=== PATIENT | female | born 1985 | race Caucasian/White ===

== ENCOUNTER 2020-12-03 04:37 | Inpatient (IN) | payer BC, OTHER ==
[~2020-12-03] VITALS: Ht 157.5 cm; Wt 88.9 kg
--- NOTE | 2020-12-03 11:53 | PR ---
[facility] [address] [facility] [place] [address] Signed PP Progress Notes Datetime Report Generated by CPN: 12/03/2020 11:53 SUBJECTIVE: [id number] Pain: Within Normal Limits Nausea/Vomiting: Denies Flatus: No Vital Signs: [id number] Vital Signs: Reviewed Notable Details: BPs resolved w/ procardia 10mg PO x 1 Cardiovascular: Normal Respiratory: Normal Abdomen/Uterus: Normal Lochia: Normal Extremities: Normal Progress: Not Applicable Exam Comments: Fundus firm U-2 nontender IMPRESSION/PLAN/PROCEDURES: [id number] Progress Notes: Reviewed preE labs and BPs. Will start Procadia XL 30mg daily and continue to monitor BPs and glucose. Current glucose 71 Signing Physician: Sanjuanita Gutierres DO Copies: ~ *Electronically Signed* 12/03/20 1153 SANJUANITA GUTIERRES DO PATIENT NAME: ROCHELLE WILDER PROGRESS NOTE DATE OF : 83 PHYSICIAN: SANJUANITA GUTIERRES DO RPT #: [id number] REPORT IS CONFIDENTIAL AND NOT TO BE RELEASED WITHOUT AUTHORIZATION
--- NOTE | 2020-12-03 16:50 | PR ---
[facility] [address] [facility] [place], [place] [address] Signed PP Progress Notes Datetime Report Generated by OMKAR: 12/03/2020 16:50 SUBJECTIVE: [id number] Pain: Within Normal Limits Nausea/Vomiting: Denies Flatus: Yes Bowel Movement: No Vital Signs: [id number] Vital Signs: Reviewed Notable Details: New onset severe Cardiovascular: Normal Respiratory: Normal Abdomen/Uterus: Normal Lochia: Normal Extremities: Abnormal Progress: Not Applicable Exam Comments: Fundus firm U-2 nontender. Reflexes brisk UE / LE bilaterally. No RUQ tenderness to deep palpation. IMPRESSION/PLAN/PROCEDURES: [id number] Other Impression: Preeclampsia w/ severe features Progress Notes: Called to pt's bedside for persistent severe range BPs. Pt given labetalol per protocol. Pt denies TATUM, RUQ pain, or visual changes. Reviewed earlier labs that showed significant proteinuria (Pro/Creat Ratio 1.7) but remainder of labs normal. Dx PreE with severe features. Will treat severe BPs w/ labetalol per protocol. Mag sulfate 6g bolus over 20 minutes w/ 2g/hr maint. dose. Labs now and q6 hr (including mag level). Will also give procardia XL additional 30mg now and increase daily dose to 60mg tomorrow AM. Salomon, clear liquids, and bed rest. Reviewed PreE w/ severe features and magnesium sulfate in detail w/ pt. Pt understands and agrees. Will monitor hypoglycemia controlled w/ PO intake closely and will permit clears to avoid severe hypoglycemia. Signing Physician: Sanjuanita Gutierres DO Copies: ~ *Electronically Signed* 12/03/20 1650 SANJUANITA GUTIERRES DO PATIENT NAME: ROCHELLE WILDER PROGRESS NOTE DATE OF : 83 PHYSICIAN: SANJUANITA GUTIERRES DO RPT #: [id number] REPORT IS CONFIDENTIAL AND NOT TO BE RELEASED WITHOUT AUTHORIZATION
--- NOTE | 2020-12-03 18:03 | NUR ---
rapid swab collected
--- NOTE | 2020-12-04 10:54 | PR ---
[facility] [address] [place], [place] [address] Signed PP Progress Notes Datetime Report Generated by CPN: 12/04/2020 10:54 SUBJECTIVE: [id number] Pain: Within Normal Limits Nausea/Vomiting: Denies Flatus: Yes Bowel Movement: No Vital Signs: [id number] Vital Signs: Reviewed Notable Details: BPs much improved Cardiovascular: Normal Respiratory: Normal Abdomen/Uterus: Normal Lochia: Normal Extremities: Normal Incision: Not Applicable Progress: Not Applicable Exam Comments: Fundus firm U-2 nontender IMPRESSION/PLAN/PROCEDURES: [id number] Impression: Induced Hypertension Other Impression: Preeclampsia w/ severe features Plan: Continue Present Management Progress Notes: Pt seen and examined. Doing better. C/O side effects of magnesium therapy including blurry vision and malaise. Other sx much improved; edema improving and excellen diuresis. No severe range BPs and mag levels therapeutic overnight. Remainder of labs normal. Held procardia XL dose this am due to BPs now 100's/60's. Plan d/c magnesium this afternoon at 24 hrs and will monitor BPs overnight. Anticipate d/c home tomorrow. Pt understands and agrees. Reviewed plan of care w/ RN Signing Physician: Sanjuanita Gutierres DO Copies: ~ *Electronically Signed* 12/04/20 1054 SANJUANITA GUTIERRES DO PATIENT NAME: ROCHELLE WILDER PROGRESS NOTE DATE OF : 83 PHYSICIAN: SANJUANITA GUTIERRES DO RPT #: [id number] REPORT IS CONFIDENTIAL AND NOT TO BE RELEASED WITHOUT AUTHORIZATION
--- NOTE | 2020-12-05 07:28 | PR ---
[facility] [facility] [address] [place], [place] [address] Signed PP Progress Notes Datetime Report Generated by CPN: 12/05/2020 07:28 SUBJECTIVE: [id number] Pain: Within Normal Limits Nausea/Vomiting: Denies Flatus: Yes Bowel Movement: Yes Vital Signs: [id number] Vital Signs: Reviewed Notable Details: No severe range bps Cardiovascular: Normal Respiratory: Normal Abdomen/Uterus: Normal Lochia: Normal CVA Tenderness: Normal Extremities: Normal Incision: Not Applicable Progress: Normal Exam Comments: Fundus firm U-2 nontender. LE edema and facial edema improved IMPRESSION/PLAN/PROCEDURES: [id number] Impression: Normal Progression Other Impression: PreE with severe features (resolved) Plan: Discharge Progress Notes: Pt seen and examined. Doing well. Magnesium stopped yesterday afternoon. BPs 140'-150's and Procardia XL 30mg initiated last night. Mild TATUM, no RUQ pain or visual changes. Desires d/c home today. Reviewed normal blood sugars. 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 Pt going to NICU in [place] to be with her and will call with any issues. Continue procardia XL 30mg daily and may need to increase. Reviewed s/sx preE. Pt to call dr. Rivera to discuss when to restart metformin. All quesitons answered. Signing Physician: Sanjuanita Gutierres DO Copies: ~ *Electronically Signed* 12/05/2072 SANJUANITA GUTIERRES DO PATIENT NAME: ROCHELLE WILDER PROGRESS NOTE DATE OF : 83 PHYSICIAN: SANJUANITA GUTIERRES DO RPT #: [id number] REPORT IS CONFIDENTIAL AND NOT TO BE RELEASED WITHOUT AUTHORIZATION
--- NOTE | 2020-12-08 06:49 | PATH ---
[facility] [address] [place], [place] [address] Signed SPECIMEN(S): A PLACENTA SPECIMEN SOURCE: A. PLACENTA CLINICAL HISTORY: Mother's age: 36. OB history: A1. Gestational age: 34.2. Infant's weight: 2394 grams. score: 7, 9. Rh positive (Rhogam no). Maternal serologies: Rubella immune, RPR non-reactive, hepatitis screen negative, GBS unknown. Specific issues of concern: , PIH, Type 2 DM. FINAL PATHOLOGIC DIAGNOSIS: Placenta (289 grams), umbilical cord and membranes: - Placental weight: Approximately 12th percentile for gestational age. - Chorionic villi with - Appropriate maturation for gestational age. - Focal microcalcifications. 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 - No evidence of trophoblastic disease. - Completeness of cotyledons cannot be ascertained due to fragmentation of placenta (see gross description). - Two-vessel umbilical cord with no additional pathologic abnormalities. - membranes with no pathologic abnormality. - No evidence of an infectious or inflammatory process. TWK:emh:C2NR MICROSCOPIC EXAMINATION: Histologic sections of all submitted blocks are examined by light microscopy. These findings, together with the gross examination, support the pathologic diagnosis. GROSS DESCRIPTION: The specimen, labeled "Олег Kim, placenta," is received fresh and placed in formalin and consists of fuentes discoid placenta with the following parameters: Umbilical cord: Insertion paramarginal, measurement 17.5 x 1.3 cm; divascular. Cord coiling index (per 10 cm): One. Lesions: Not grossly identified. Membranes: Insertion site: Marginal, pink and translucent, rupture site fragmented and disrupted. Other: Not grossly identified. Chorionic Plate: Normal radiating vascular pattern, blue-purple and shiny. PATIENT NAME: ОЛЕГ KIM PATHOLOGY DATE OF : 83 REPORT #: [id number] PHYSICIAN: ALF PATHOLOGY PCP: APPLE KYLE NP REPORT IS CONFIDENTIAL AND NOT TO BE RELEASED WITHOUT AUTHORIZATION [facility] [address] [place], [place] [address] Signed Lesions: Not grossly identified. Other: Not grossly identified. Maternal Surface: Normal cotyledons, fragmented. Lesions: Not grossly identified. Measurement: 14.8 x 13.5 x 2.6 cm. Weight (trimmed): 289 g Cut Surface: Maroon and spongy. Lesions: A 1.8 x 1.2 x 1.0 cm pink-red laminated area of consolidation, which involve less than 10% of the percent of parenchyma. Basal plate fibrin 0.1 cm in thickness. Other Findings: Not grossly identified. Cassette Summary: (A1) membranes and umbilical cord (A2) area of consolidation (A3) placenta parenchyma (A4) placenta parenchyma FB (under the direct supervision of a pathologist) The Gross Description was prepared using a voice recognition system. The report was reviewed for accuracy; however, sound-alike word errors, addition and/or deletions may occur. If there is any question about this report, please contact Client Services. PERFORMING LABORATORY: The technical component was performed by [facility], [address] [place] [id number] (Coin Machine Assembler: Sydney Renteria MD; CLIA# [id number]). [facility], [address] [address] (CLIA# [id number]). Diagnostician: Isaias Garcia MD Pathologist Electronically Signed 12/07/2020 Copies: ~ PATIENT NAME: ОЛЕГ KIM PATHOLOGY DATE OF : 83 REPORT #: [id number] PHYSICIAN: ALF MICHEL PCP: APPLE KYLE NP REPORT IS CONFIDENTIAL AND NOT TO BE RELEASED WITHOUT AUTHORIZATION
== END 2020-12-05 10:20 | disposition home or self-care (01) | DRG 805 ==
LOC: FBCO 04:37 → FBC 05:02
PROVIDERS: ADMIT Obstetrics & Gynecology; ATTEND Obstetrics & Gynecology
PROC: 10E0XZZ Delivery of Products of Conception, External Approach (ICD-10-PCS; principal; 2020-12-03)
DX: O60.14X0 Preterm labor third trimester with preterm delivery third trimester, not applicable or unspecified (principal); O24.12 Pre-existing type 2 diabetes mellitus, in childbirth; Z37.0 Single live birth; Z3A.34 34 weeks gestation of pregnancy; O14.14 Severe pre-eclampsia complicating childbirth; E11.9 Type 2 diabetes mellitus without complications; Z88.2 Allergy status to sulfonamides; Z79.4 Long term (current) use of insulin; Z79.899 Other long term (current) drug therapy; Z90.49 Acquired absence of other specified parts of digestive tract; Z98.890 Other specified postprocedural states; Z88.1 Allergy status to other antibiotic agents; Z88.6 Allergy status to analgesic agent; Z88.8 Allergy status to other drugs, medicaments and biological substances; Z91.018 Allergy to other foods
CPT/HCPCS: 80053; 82570; 83735; 84156; 84550; 85025; 85027; C9803; J1170; J2590; J3475; J7121; U0003